=== PATIENT | female | born 1945 | race Two or more races ===

== ENCOUNTER 2024-06-26 16:57 | Inpatient (IN) | payer OTHER ==
[~2024-06-26] VITALS: Ht 157.5 cm; Wt 59.0 kg
[~2024-06-26 16:57] MED LIST: ATORVASTATIN CA10 MG PO; CHILDREN'S ASPI81 MG PO; DIOVAN320 MG PO; GABAPENTIN100 M2; HORIZANT300 MG PO; HYDROCHLOROTHIA25 MG; METFORMIN HCL500 M4; METFORMIN HCL500 MG; NIFEDIPINE ER30 M1; OMEPRAZOLE20 MG; PLAVIX75 MG PO; SIMVASTATIN40 MG; TELMISARTAN-HC1 EACH; TOPROL XL25 M1 PO
--- NOTE | 2024-06-26 17:06 | NUR ---
PACIENTE ALERTA Y ORIENTADA X 3. REFIERE FUE OPERADA DE LOS INTESTINO HACEN [address] INDICA FISTULA EN AREA DE OPERACION LO CUAL LE [place] DOLOR EN AREA ABDOMINAL LADO DERECHO HACEN 4 MESES. INDICA [place] SE ATENDIO EN [place] JANESSA DE EMERGENCIA POR VOMITOS Y DOLOR. HOY NO PRESENTA VOMITOS SOLO EL DOLOR ABDOMINAL. FUE OPERADA POR DR POWELL.
[2024-06-26] MEDS ORDERED: MICARDIS20 MG PO (17:09)
[2024-06-26] MEDS ORDERED: GLUMETZA500 MG (17:09)
[2024-06-26] MEDS ORDERED: GRALISE600 MG (17:09)
[2024-06-26] MEDS ORDERED: PIPERACILLIN/TAZOBACTAM SODIUM 3.375 GM VIAL IV ONE ×2 (17:41→17:45)
[2024-06-26] MEDS ORDERED: 0.9 % SODIUM CHLORIDE 1,000 ML IV ONE (17:45)
--- NOTE | 2024-06-26 17:59 | NUR ---
PACIENTE EVALUADA POR QUIEN ORDENA TRATAMIENTO MEDICO, SE LE ORIENTA A PACIENTE SOBRE EL MISMO Y REFIERE ENTENDER, SE LE COLECTAN MUESTRAS Y SE CANALIZA BAJO MEDIDAS ASEPTICAS, SE LE ADMINISTRAN MEDICAMENTOS PACIENTE TOLERA Y NO PRESENTA REACCION ADVERSA.
[2024-06-26 18:26] LABS: PH,URINE 6.5 (5.0-8.0); URINE APPEARANCE Clear; URINE BILIRRUBIN Negative (NEGATIVE); URINE BLOOD Negative; URINE COLOR Yellow; URINE GLUCOSE Negative (NEGATIVE); URINE KETONE Negative (NEGATIVE); URINE LEUKOCYTE Negative; URINE NITRATE Negative; URINE PROTEIN Negative (NEGATIVE); URINE UROBILINOGEN 0.2 E.U./dl
[2024-06-26 18:27] LABS: HEMOGLOBIN 12.6 g/dL (12.0-15.00); MEAN CELL VOLUME 80.9 fL (80.00-100.00); MEAN CORPUSCULAR HEMOGLOBIN 27.5 pg (27.00-32.0); PLATELET COUNT 273 K/uL (150-450); RED BLOOD COUNT 4.58 M/uL (4.00-6.00); RED CELL DISTRIBUTION WIDTH 17.4 % (11.5-14.5)
[2024-06-26 18:29] LABS: URINE BACTERIA 8.8 uL (0.0-1933); URINE EPITHELIAL CELLS 1.8 uL (0.0-38.8)
[2024-06-26 18:41] LABS: URINE WBC 1.2 uL (0.0-23.2)
[2024-06-26 19:00] LABS: ALBUMIN 3.4 gm/dL (3.4-5.0); BILIRUBIN TOTAL 0.46 mg/dL (0.3-1.2); CALCIUM 9.2 mg/dL (8.5-10.1); CREATININE SERUM 0.87 mg/dL (0.55-1.02); GFR 63.3; GLOBULINA 3.9 G/DL (2.4-3.5); POTASSIUM 3.05 mEq/L (3.5-5.1); TOTAL PROTEIN 7.3 gm/dL (6.4-8.2)
--- NOTE | 2024-06-26 19:46 | NUR ---
SE EDUCA A PTE SOBRE TX A RECIBIR EN EL AREA LA MISMA REFIERE ENTENDER. SE COLOCA NGT EN FOSA NASAL DERECHA Y SE VERIFICA CON GRISEL GIL Y GRISEL MOORE. SE COLOCA NGT LIS EN BEBO.
[2024-06-26 20:17] LABS: INR 1.07; PARTIAL THROMBOPLASTIN TIME 26.6 SECONDS (22.0-34.0); PROTHROMBIN TIME 11.6 SECONDS (9.0-11.5)
[2024-06-26] MEDS ORDERED: POTASSIUM CHLORIDE 20MEQ/100ML H2O PB IV ONE (22:30)
[2024-06-26] MEDS ORDERED: 0.9 % SODIUM CHLORIDE 1,000 ML IV SCH (22:30)
[2024-06-26] MEDS ORDERED: MORPHINE SULFATE 4 MG/ML CARTRIDGE IV PRN (22:30)
[2024-06-26] MEDS ORDERED: ENALAPRILAT DIHYDRATE 1.25 MG/ML VIAL IV PRN (22:45)
[2024-06-26] MEDS ORDERED: INSULIN LISPRO 1,000 UNIT/10 ML UNITS SUBCUTANEO PRN (22:45)
[2024-06-26] MEDS ORDERED: DEXTROSE 50 % IN WATER 0.5 G/ML DISP.SYRIN IV PRN (22:45)
[2024-06-27] MEDS ORDERED: PIPERACILLIN/TAZOBACTAM SODIUM 3.375 GM in 0.9 % SODIUM CHLORIDE 100 ML IV SCH
[2024-06-27 04:00] VITALS: BP 181/100; O2SAT 96
[2024-06-27 09:58] VITALS: BP 190/86
[2024-06-27] MEDS ORDERED: DEXTROSE 50 % IN WATER 0.5 G/ML DISP.SYRIN IV PRN (12:15)
[2024-06-27] MEDS ORDERED: INSULIN LISPRO 1,000 UNIT/10 ML UNITS SUBCUTANEO PRN (12:15)
[2024-06-27 19:03] VITALS: BP 153/83; O2SAT 97
[2024-06-28 02:21] VITALS: BP 148/84; O2SAT 95
[2024-06-28 09:00] VITALS: BP 175/77
[2024-06-28] MEDS ORDERED: PATIENTS OWN MEDICATION (MEDICAMENTO EN PISO) PO SCH (09:00)
[2024-06-28] MEDS ORDERED: POLYETHYLENE GLYCOL 3350 238 GM POWDER PO NR (10:00)
[2024-06-28 18:13] VITALS: BP 160/75; O2SAT 97
[2024-06-29 01:56] VITALS: BP 172/83; O2SAT 100
[2024-06-29] MEDS ORDERED: NA PHOS,M-B/NA PHOS,DI-BA 1 BOTTLE ENEMA RECTAL SCH (06:00)
[2024-06-29 08:56] VITALS: BP 152/83
[2024-06-29] MEDS ORDERED: DIPHENHYDRAMINE HCL 50 MG/ML VIAL 1ML IV ONE (11:30)
[2024-06-29] MEDS ORDERED: fentaNYL CITRATE 50 MCG/ML AMPUL IV PUSH ONE (11:30)
[2024-06-29] MEDS ORDERED: MIDAZOLAM HCL 2 MG/2 ML VIAL IV ONE (11:30)
[2024-06-29] MEDS ORDERED: SODIUM CL 0.9% 100 ML IV.SOLN IV ONE (12:39)
[2024-06-29 16:00] VITALS: BP 151/82; O2SAT 100
[2024-06-30 02:32] VITALS: BP 160/85; O2SAT 99
[2024-06-30 08:19] VITALS: BP 126/73
[2024-06-30 14:19] LABS: HEMATOCRIT 38.4 % (36.0-45.00); HEMOGLOBIN 12.6 g/dL (12.0-15.00); MEAN CELL VOLUME 84.1 fL (80.00-100.00); MEAN CORPUSCULAR HEMOGLOBIN 27.7 pg (27.00-32.0); MEAN CORPUSCULAR HGB CONC 32.9 g/dl (32.0-36.0); PLATELET COUNT 259 K/uL (150-450); RED BLOOD COUNT 4.57 M/uL (4.00-6.00); RED CELL DISTRIBUTION WIDTH 17.1 % (11.5-14.5)
[2024-06-30 14:36] LABS: ALBUMIN 3.4 gm/dL (3.4-5.0); BILIRUBIN TOTAL 0.49 mg/dL (0.3-1.2); CREATININE SERUM 0.94 mg/dL (0.55-1.02); GFR 57.9; GLOBULINA 3.4 G/DL (2.4-3.5); POTASSIUM 3.62 mEq/L (3.5-5.1); TOTAL PROTEIN 6.8 gm/dL (6.4-8.2)
[2024-07-01 00:49] VITALS: BP 137/70; O2SAT 98
[2024-07-01] MEDS ORDERED: MIRALAX17 GM PO (07:30)
[2024-07-01 08:00] VITALS: BP 151/80; O2SAT 98
== END 2024-07-01 10:17 | disposition home or self-care (01) | DRG 389 ==
LOC: MEDJ → ER 16:58 → MEDJ 22:22 → SURH 06-30 14:58
PROVIDERS: General Practice; ADMIT Colon & Rectal Surgery; ATTEND Colon & Rectal Surgery
PROC: 0D7P8ZZ Dilation of Rectum, Via Natural or Artificial Opening Endoscopic (ICD-10-PCS; principal; 2024-06-29)
DX: K56.609 Unspecified intestinal obstruction, unspecified as to partial versus complete obstruction (principal); K63.2 Fistula of intestine; K64.1 Second degree hemorrhoids; I10 Essential (primary) hypertension; E11.9 Type 2 diabetes mellitus without complications; Z79.4 Long term (current) use of insulin